=== PATIENT | female | born 1970 | race Two or more races ===

== ENCOUNTER → 2019-05-02 09:41 | Outpatient (CLI) | payer OTHER ==
[~2019-05-02 09:41] MED LIST: PERCOCET 5-3251 EACH PO
== END | disposition home or self-care (01) ==
LOC: LAB 09:41
DX: C50.812 Malignant neoplasm of overlapping sites of left female breast (principal); C50.111 Malignant neoplasm of central portion of right female breast; I10 Essential (primary) hypertension

== ENCOUNTER 2019-05-02 12:46 | Outpatient (CLI) | payer OTHER | END 2019-05-02 15:00 | disposition home or self-care (01) | LOC: TOM 12:46 | DX: C50.812 Malignant neoplasm of overlapping sites of left female breast (principal) ==

== ENCOUNTER 2019-05-04 09:20 | Outpatient (CLI) | payer OTHER ==
[2019-05-05] MEDS ORDERED: PERCOCET 5-3251 EACH PO (10:30)
== END 2019-05-04 09:35 | disposition home or self-care (01) ==
LOC: NUCLEAR 09:20
DX: C50.812 Malignant neoplasm of overlapping sites of left female breast (principal)
CPT/HCPCS: 78306; A9503

== ENCOUNTER 2019-05-05 07:07 | Day surgery (SDC) | payer OTHER ==
[2019-05-05] MEDS ORDERED: PERCOCET 5-3251 EACH PO (10:30)
== END 2019-05-05 12:20 | disposition home or self-care (01) ==
LOC: CIR.AMB 07:07
DX: C50.111 Malignant neoplasm of central portion of right female breast (principal)
CPT/HCPCS: 36561; C1751

== ENCOUNTER 2019-05-09 13:09 | Outpatient (CLI) | payer OTHER | END 2019-05-09 13:12 | disposition home or self-care (01) | LOC: NUCLEAR 13:09 | DX: I42.7 Cardiomyopathy due to drug and external agent (principal); Z51.11 Encounter for antineoplastic chemotherapy; C50.812 Malignant neoplasm of overlapping sites of left female breast | CPT/HCPCS: 78472; 78496; A9560 ==

== ENCOUNTER 2019-10-03 08:38 | Outpatient (CLI) | payer OTHER | END 2019-10-03 08:53 | disposition home or self-care (01) | LOC: LAB 08:38 | DX: C50.812 Malignant neoplasm of overlapping sites of left female breast (principal) ==

== ENCOUNTER → 2019-10-10 10:36 | Outpatient (CLI) | payer OTHER | END | disposition home or self-care (01) | LOC: LAB 10:36 → EKG 10:36 | DX: C50.812 Malignant neoplasm of overlapping sites of left female breast (principal); Z01.810 Encounter for preprocedural cardiovascular examination ==

== ENCOUNTER 2019-12-29 11:39 | Outpatient (CLI) | payer OTHER | END 2019-12-29 15:24 | disposition home or self-care (01) | LOC: SONOGRAMA 11:39 | DX: E04.1 Nontoxic single thyroid nodule (principal) ==

== ENCOUNTER 2020-01-02 10:29 | Outpatient (CLI) | payer OTHER | END 2020-01-02 12:55 | disposition home or self-care (01) | LOC: NUCLEAR 10:29 | DX: I42.7 Cardiomyopathy due to drug and external agent (principal) ==

== ENCOUNTER 2020-04-03 09:28 | Outpatient (CLI) | payer OTHER | END 2020-04-03 10:53 | disposition home or self-care (01) | LOC: NUCLEAR 09:28 | PROVIDERS: ATTEND Internal Medicine | DX: I42.7 Cardiomyopathy due to drug and external agent (principal) ==

== ENCOUNTER 2022-08-07 06:41 | Day surgery (SDC) | payer OTHER ==
[~2022-08-07] VITALS: Ht 157.5 cm; Wt 56.7 kg
[~2022-08-07 06:41] MED LIST changes: +ANASTROZOLE1 MG PO
== END 2022-08-07 16:25 | disposition home or self-care (01) ==
LOC: CIR.AMB 06:41
PROVIDERS: ATTEND Surgery
DX: C50.111 Malignant neoplasm of central portion of right female breast (principal); Z20.822 Contact with and (suspected) exposure to COVID-19; Z87.891 Personal history of nicotine dependence; Z45.2 Encounter for adjustment and management of vascular access device